=== PATIENT | female | born 1995 | race Caucasian/White ===

== ENCOUNTER → 2018-09-20 | Outpatient (REF) | payer OTHER ==
[2018-09-20 13:23] LABS: BASO % 0.7 % (0.0-1.0); EOS # 0.1 10^3/uL (0.0-0.50); EOS % 1.9 % (0.0-3.0); HEMATOCRIT 41.5 % (36.0-47.0); HEMOGLOBIN 14.4 g/dl (12.0-15.5); LYMPH # 1.2 10^3/uL (1.5-6.5); MEAN CORPUSCULAR HEMOGLOBIN 30.8 pg (27.0-33.0); MEAN CORPUSCULAR HGB CONC 34.7 g/dl (32.0-36.5); MEAN CORPUSCULAR VOLUME 88.7 fl (80.0-96.0); MONO # 0.3 10^3/uL (0.0-0.8); MONO % 6.5 % (0.0-5.0); NEUTROPHILS # 2.6 10^3/uL (1.8-7.7); NEUTROPHILS % 61.7 % (36.0-66.0); PLATELET COUNT, AUTOMATED 203 10^3/uL (150-450); RED BLOOD COUNT 4.68 10^6/uL (4.00-5.40); WHITE BLOOD COUNT 4.3 10^3/uL (4.0-10.0)
[2018-09-20 13:59] LABS: ALBUMIN 4.5 GM/DL (3.2-5.2); ALT/SGPT 20 U/L (12-78); BILIRUBIN,TOTAL 0.7 MG/DL (0.2-1.0); BLOOD UREA NITROGEN 9 MG/DL (7-18); CALCIUM LEVEL 8.4 MG/DL (8.5-10.1); CARBON DIOXIDE LEVEL 24 MEQ/L (21-32); CHLORIDE LEVEL 109 MEQ/L (98-107); CREATININE FOR GFR 0.67 MG/DL (0.55-1.30); GLOMERULAR FILTRATION RATE > 60.0 (>60); GLUCOSE, FASTING 86 MG/DL (70-100); POTASSIUM SERUM 4.2 MEQ/L (3.5-5.1); SODIUM LEVEL 141 MEQ/L (136-145); TOTAL PROTEIN 7.2 GM/DL (6.4-8.2); TROPONIN I < 0.02 NG/ML (< 0.10)
== END ==
LOC: M SFHCLERA 12:12
PROVIDERS: ATTEND Nurse Practitioner Family
DX: R07.9 Chest pain, unspecified (principal)

== ENCOUNTER → 2018-09-20 | Outpatient (CLI) | payer OTHER ==
--- NOTE | 2018-09-20 12:53 | REP ---
Chest two views HISTORY: Chest pain Comparison: None The lungs are clear. The heart is normal in size. The pulmonary vasculature is normal in appearance. The bony structure is intact. IMPRESSION: No acute disease. Electronically Signed by Cole Rossi MD 09/20/2018 12:45 P
== END ==
LOC: M LRY 12:30
PROVIDERS: ATTEND Nurse Practitioner Family
DX: R07.9 Chest pain, unspecified (principal)

== ENCOUNTER 2019-06-12 18:19 | Outpatient (CLI) | payer OTHER ==
[~2019-06-12] VITALS: Ht 165.1 cm; Wt 85.7 kg
[2019-06-12 18:35] VITALS: BP 134/75
[2019-06-12] MEDS ORDERED: ZOLO50TA PO (18:42)
[2019-06-12] MEDS ORDERED: PRENTAB9 PO (18:42)
[2019-06-12] MEDS ORDERED: ZYRTTAB8 PO (18:42)
[2019-06-12] MEDS ORDERED: ZOLO25TA PO (18:42)
--- NOTE | 2019-06-13 00:15 | IPNPDOC ---
Text Note Date of Service The patient was seen on 06/12/19. NOTE patient is a 24 yo @ 38+3wks gestation presents with regular painful contractions. Denies LOF/VB. +FM Vitals: normal nad abd: gravid, soft, nt, cephalic fht: reactive toco: ctx q 3mins ce (by nurse): 2-3cm a/p patient in early labor. Option of staying and recheck in 2 hrs vs. going home and come back when contractions are more intense. patient opted to go home. return precautions given. DO Megha VS,Fishbone, I+O VS, Fishbone, I+O Vital Signs Date Time Temp Pulse Resp B/P (MAP) Pulse Ox O2 Delivery O2 Flow Rate FiO2 06/12/19 18:35 98.8 95 17 134/75 (94) CYNTHIA REDMAN DO Jun 13, 2019 00:15
== END 2019-06-12 19:28 | disposition home or self-care (01) ==
LOC: M LDO 18:19
PROVIDERS: ATTEND Obstetrics & Gynecology
DX: O62.0 Primary inadequate contractions (principal); Z3A.38 38 weeks gestation of pregnancy
CPT/HCPCS: 59025; G0378; G0463

== ENCOUNTER 2019-06-12 22:27 | Inpatient (IN) | payer OTHER ==
[~2019-06-12] VITALS: Ht 165.1 cm; Wt 86.5 kg
[~2019-06-12 22:27] MED LIST: PRENTAB9 PO; ZOLO25TA PO; ZOLO50TA PO; ZYRTTAB8 PO
[2019-06-12] MEDS ORDERED: LACTATED RINGER'S 1000 ML IV STA (22:45)
[2019-06-12] MEDS ORDERED: LR 1,000 ML IV SCH (22:45)
[2019-06-12 22:53] VITALS: BP 136/68
[2019-06-12 23:15] LABS: HEMATOCRIT 34.2 % (36.0-47.0); HEMOGLOBIN 11.7 g/dl (12.0-15.5); MEAN CORPUSCULAR HGB CONC 34.2 g/dl (32.0-36.5); MEAN CORPUSCULAR VOLUME 90.7 fl (80.0-96.0); PLATELET COUNT, AUTOMATED 134 10^3/uL (150-450); RED BLOOD COUNT 3.77 10^6/uL (4.00-5.40)
--- NOTE | 2019-06-12 23:32 | HPEPDOC ---
Obstetrical History & Physical General Date of Admission Jun 12, 2019 at 22:49 History of Present Illness patient is a 24 yo @38+3wks by sure LMP c/w 8wks US emily 2Dec presents with regular painful contractions. Denies LOF/VB. Chief Complaint: Contractions, term Age: 24 : 2 Term: 1 Pre-term: 0 Abortions: 0 Livin Care Care: Good Care Dating Final EDC: Jun 23, 2019 Final EDC for Daily Update: Jun 23, 2019 Final EDC by: LMP, 1st trimester (US) Past Medical History Past Obstetrical History : Past Obstetrical History: Multigravida ( X 1, ) FITTER HAND History: No pertinent history Past Medical History Surgical History: Denies/None Social History Marital Status: Family situation: Spouse/partner home * Smoker: non-smoker Alcohol: Denies Drugs: denies Imunizations Tdap status: current Influenza Status: current Allergies Coded Allergies: SEASONAL ALLERGIES (Verified Allergy, Unknown, 06/12/19) Penicillins (Verified Adverse Reaction, Mild, NAUSEA, 06/12/19) Medications Scheduled Cetirizine HCl/Pseudoephedrine (Zyrtec-D Tablet) 1 Each Tab.er.12h, 1 TAB PO BID for allergy symptoms No.137/Iron/Folic Acd ( Vitamin Tablet) 1 Each Tablet, 1 TAB PO DAILY Sertraline Hcl (Zoloft) 25 Mg Tablet, 1 TAB PO DAILY Sertraline Hcl (Zoloft) 50 Mg Tablet, 1 TAB PO DAILY Physical Examination Physical Examination GENERAL: Alert and oriented times three. BREAST: . ABDOMEN: Gravid and non-tender to touch. FETUS: vertex by steve's HEART RATE: Regular rate and rhythm. LUNGS: Clear to auscultation (CTA). EXTREMITIES: No edema/erythema/tendernes efw: 3200gm by steve Laboratory Data 24H LABS Laboratory Tests 2 06/12/19 22:59: Serology Scanned Report Hepatitis B Testing Pertinent Laboratoy Data Blood Type: O+ RBC Antibody Screen: Negative HIV: Negative Hepatitis B: Negative Rapid Plasma Reagin: Nonreactive Rubella: Immune Chlamydia/Gonorrhea: Negative Group B Streptococcus: Negative Glucose Tolerance Test: 93 Anatomy Ultrasound Placenta Location: Posterior Normal Anatomy: Yes Placenta Previa: No Assessment Heart Rate (FHR): 120 Variability: Moderate Accelerations: Positive Decelerations: None Tocometer Frequency: regular, every 1-3 min., every 1-5 min. Assessment/Plan Assessment patient is a 29 yo G1 @ 38+3wks in labor. Discussd possible augmentation with pitocin or arom as needed. Patient counseled on l&d monitors and risks as follows. Discussed external monitor with toco and sono for fhr. Internal monitors with IUPC and FSE as indicated. Possible use of oxytocin and AROM to augment labor as indicated. Risk of emergent delivery, infection requiring antibiotics and prolonged hospital stay, bleeding requiring blood transfusion and associated risk like anaphylatic reaction and transmission of blood borne pathogens, use of forceps and vacuum to assist vaginal delivery in an emergency or for maternal exhaustion and associated risk of vaginal tear and permanent injuries, episiotomy and pain discussed with patient. 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 Diet: clear Group B Streptococcus (GBS) negative. Labs and intravenous (IV) per unit protocol. Anticipate normal spontaneous delivery (). C-S as appropriate. CYNTHIA REDMAN DO Jun 12, 2019 23:28
[2019-06-12] MEDS ORDERED: FENTANYL 2MCG/ML ROPIVACAINE 0.2% IN 0.9% NACL 100ML IVBAG As Ordered ONE (23:36)
[2019-06-13] VITALS (7 sets, daily range): BP systolic 107–141; BP diastolic 59–88
[2019-06-13] MEDS ORDERED: OXYTOCIN 30 UNITS IN 0.9% NaCl 500ML IV BAG (J2590) As Ordered ONE ×2 (00:20→00:34)
[2019-06-13] MEDS ORDERED: OXYTOCIN DRIP 30 UNITS in IV 1 EA IV SCH (01:10)
[2019-06-13] MEDS ORDERED: RHOGAM 300 MCG (1500 IU) INJ (J2790) IM SCH (01:15)
[2019-06-13] MEDS ORDERED: IBUPROFEN 800 MG TAB PO PRN (01:15)
[2019-06-13] MEDS ORDERED: ACETAMINOPHEN TAB 650MG DOSE (2X325MG) PO PRN (01:15)
[2019-06-13] MEDS ORDERED: DIBUCAINE 1% OINTMENT 30GM TOP PRN (01:15)
[2019-06-13] MEDS ORDERED: MEASLES,MUMPS,RUBELLA VACCINE INJ (MMR-II) (90707) SC SCH (01:15)
[2019-06-13] MEDS ORDERED: DOCUSATE SODIUM 100 MG CAP PO PRN (01:15)
--- NOTE | 2019-06-13 01:42 | DNPDOC ---
[facility] Delivery Note Delivery Note DATE OF DELIVERY: 13Jun2019 PREDELIVERY DIAGNOSIS: 38+3/7 weeks' gestation and labor. POST DELIVERY DIAGNOSIS: Delivered. PROCEDURE: Spontaneous vaginal delivery DIVISION ORDER ANALYST: Dr. Td Clevelnad DO ANESTHESIA: epidural. ESTIMATED BLOOD LOSS: 300mL. FINDINGS: 7 pound 7 ounce; female infant, Score 7/8 DELIVERY SUMMARY: Patient unmedicated on hands and knees with c/c/+2 with urge to push. Baby delivered OA, restituted LOT. anterior shoulder delivered followed by posterior shoulder, body followed with ease. Baby placed on bed. Cord clamped x 2 and cut. baby brought to warmer to suction. pitocin bolus started. placenta delivered spontaneously. Fundus massaged firm. inspection reveals right labia laceration, not bleeding, not requiring repair. EBL 300cc. DO ЮЛИЯ [place] LUAT N. DO Jun 13, 2019 01:19
[2019-06-13] MEDS ORDERED: diphenhydrAMINE INJ 50MG/ML VIAL (J1200) IV PRN (02:00)
[2019-06-13] MEDS ORDERED: REFRIGERATOR IV KEYS XX PRN (02:00)
[2019-06-13] MEDS ORDERED: ONDANSETRON 4MG/2ML VIAL (J2405) IV PRN (02:00)
[2019-06-13] MEDS ORDERED: EPIDURAL/PCA KEYS XX PRN (02:00)
[2019-06-13] MEDS ORDERED: NALOXONE INJ 0.4 MG/1 ML VIAL (J2310) IV PRN (02:00)
[2019-06-13] MEDS ORDERED: EPIDURAL COMMENT XX SCH (02:00)
[2019-06-13] MEDS ORDERED: FENTANYL/ROPIVACAINE/NACL BAG 100 ML EPIDURAL SCH (02:00)
[2019-06-13] MEDS: PRENATAL VITAMINS CHEWABLE TABLET PO SCH (08:52)
[2019-06-14 06:23] VITALS: BP 105/59
[2019-06-14] MEDS: PRENATAL VITAMINS CHEWABLE TABLET PO SCH (08:33)
[2019-06-14] MEDS ORDERED: ACET1TAB55 PO (10:07)
[2019-06-14] MEDS ORDERED: IBUP80TA PO (10:07)
--- NOTE | 2019-06-14 10:10 | DS.PDOC ---
Discharge Summary General Date of Admission Jun 12, 2019 at 22:49 Date of Discharge Jun 14, 2019 Discharge Summary HOSPITAL COURSE: Ms. 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 Her recovery course has been unremarkable. On her day of discharge she met all appropriate discharge criteria. She was ambulating, voiding, tolerating a regular diet, had minimal lochia, and minimal pain. DISCHARGE MEDICATIONS: Please see below. ALLERGIES: Please see below. PHYSICAL EXAMINATION ON DISCHARGE: VITAL SIGNS: Please see below. GENERAL: AAOX3, sitting up in bed, NAD ABDOMINAL EXAMINATION: Fundus firm at U-2. No fundal tenderness EXTREMITIES: No edema PSYCHIATRIC EXAMINATION: Affect appropriate LABORATORY DATA: Please see below. ACTIVITY: Pelvic rest for 6 weeks DIET: Regular DISCHARGE PLAN: Discharge home DISPOSITION: Discharge home on 14Jun2019. DISCHARGE INSTRUCTIONS: 1. Pelvic rest for 6 weeks ITEMS TO FOLLOWUP ON ON OUTPATIENT: 1. appointment in 6 weeks DISCHARGE CONDITION: Stable. TIME SPENT ON DISCHARGE: Greater than 20 minutes. Barry Rivera DO Vital Signs/I&Os Vital Signs Date Time Temp Pulse Resp B/P (MAP) Pulse Ox O2 Delivery O2 Flow Rate FiO2 06/14/19 06:23 97.8 83 16 105/59 (74) 06/13/19 18:00 97 Discharge Medications Scheduled Cetirizine HCl/Pseudoephedrine (Zyrtec-D Tablet) 1 Each Tab.er.12h, 1 TAB PO BID for allergy symptoms, (Reported) No.137/Iron/Folic Acd ( Vitamin Tablet) 1 Each Tablet, 1 TAB PO DAILY, (Reported) Sertraline Hcl (Zoloft) 25 Mg Tablet, 1 TAB PO DAILY, (Reported) Sertraline Hcl (Zoloft) 50 Mg Tablet, 1 TAB PO DAILY, (Reported) Scheduled PRN Acetaminophen (Acetaminophen) 325 Mg Tablet, 650 MG PO Q4HP PRN for fever Ibuprofen (Ibuprofen) 800 Mg Tablet, 800 MG PO Q8HP PRN for pain Allergies Coded Allergies: SEASONAL ALLERGIES (Verified Allergy, Unknown, 06/12/19) Penicillins (Verified Adverse Reaction, Mild, NAUSEA, 06/12/19) BARRY RIVERA DO Jun 14, 2019 10:10
== END 2019-06-14 11:24 | disposition home or self-care (01) | DRG 807 ==
LOC: M LDO 22:27 → M LDI 22:49 → M OBS 06-13 03:01
PROVIDERS: ADMIT Obstetrics & Gynecology; ATTEND Obstetrics & Gynecology
PROC: 10E0XZZ Delivery of Products of Conception, External Approach (ICD-10-PCS; principal; 2019-06-13)
DX: O70.0 First degree perineal laceration during delivery (principal); Z37.0 Single live birth; Z88.0 Allergy status to penicillin; Z3A.38 38 weeks gestation of pregnancy; Z79.899 Other long term (current) drug therapy

== ENCOUNTER 2022-08-05 09:08 | Inpatient (IN) | payer OTHER ==
[~2022-08-05] VITALS: Ht 167.6 cm; Wt 91.4 kg
[2022-08-05] VITALS (21 sets, daily range): BP systolic 124–188; BP diastolic 63–106
[~2022-08-05 09:08] MED LIST changes: +ACET1TAB55 PO; +IBUP80TA PO
[2022-08-05] MEDS ORDERED: WELLTAB38 PO (09:33)
[2022-08-05] MEDS ORDERED: IRON27TA2 PO (09:33)
[2022-08-05] MEDS ORDERED: ALLE24TA7 PO (09:33)
[2022-08-05] MEDS ORDERED: ECOT81TA5 PO (09:33)
[2022-08-05] MEDS ORDERED: EFFE75CA2 PO (09:33)
[2022-08-05] MEDS ORDERED: IRON65TA2 PO (09:34)
[2022-08-05] MEDS ORDERED: HOME MED LIST COMPLETE! XX SCH (09:35)
[2022-08-05] MEDS ORDERED: LACTATED RINGER'S 1000 ML IV STA (10:08)
[2022-08-05] MEDS: LR 1,000 ML IV SCH ×4 (10:10→18:10)
[2022-08-05] MEDS ORDERED: OXYTOCIN INJ 10UNITS/ML 1ML VIAL IM PRN (10:10)
[2022-08-05] MEDS ORDERED: OXYTOCIN DRIP 30 UNITS in IV 1 EA IV PRN (10:10)
[2022-08-05] MEDS ORDERED: TRANEXAMIC ACID INJection 1,000 MG in NS 100 ML IV PRN (10:10)
[2022-08-05] MEDS ORDERED: OXYTOCIN DRIP 30 UNITS in IV 1 EA IV SCH (10:10)
[2022-08-05] MEDS ORDERED: METHYLERGONOVINE MALEATE 0.2 MG/ML VIAL (J2210) IM PRN (10:10)
[2022-08-05 11:00] LABS: BASO % 0.5 % (0.0-1.0); EOS # 0.1 10^3/uL (0.0-0.5); EOS % 1.2 % (0.0-3.0); HEMATOCRIT 35.6 % (36.0-47.0); LYMPH # 1.7 10^3/uL (1.5-5.0); LYMPH % 19.6 % (24.0-44.0); MEAN CORPUSCULAR HEMOGLOBIN 31.2 pg (27.0-33.0); MEAN CORPUSCULAR HGB CONC 33.7 g/dl (32.0-36.5); MEAN CORPUSCULAR VOLUME 92.5 fl (80.0-96.0); MONO # 0.6 10^3/uL (0.0-0.8); MONO % 7.1 % (2.0-8.0); NEUTROPHILS % 70.8 % (36.0-66.0); PLATELET COUNT, AUTOMATED 160 10^3/uL (150-450); RED BLOOD COUNT 3.85 10^6/uL (4.00-5.40); WHITE BLOOD COUNT 8.5 10^3/uL (4.0-10.0)
[2022-08-05 11:25] LABS: ALBUMIN 2.5 G/DL (3.2-5.2); ALKALINE PHOSPHATASE 89 U/L (46-116); ALT/SGPT 21 U/L (7.0-40); AST/SGOT 22 U/L (<34); BILIRUBIN,TOTAL 0.3 MG/DL (0.3-1.2); BLOOD UREA NITROGEN 9 MG/DL (9-23); CALCIUM LEVEL 8.5 MG/DL (8.5-10.1); CARBON DIOXIDE LEVEL 22 MMOL/L (20-31); CHLORIDE LEVEL 105 MMOL/L (98-107); CREATININE FOR GFR 0.48 MG/DL (0.55-1.30); GLOMERULAR FILTRATION RATE > 60.0 (>60); GLUCOSE, FASTING 92 MG/DL (60-100); SODIUM LEVEL 137 MMOL/L (136-145); TOTAL PROTEIN 5.6 G/DL (5.7-8.2)
[2022-08-05 11:46] LABS: TOTAL PROTEIN,RANDOM URINE 26.8 MG/DL (0.0-14.0)
[2022-08-05 11:51] LABS: CREATININE,RANDOM URINE 126.9 MG/DL
[2022-08-05] MEDS ORDERED: MORPHINE 2 MG/ML 1ML VIAL IV ONE (15:05)
[2022-08-05] MEDS ORDERED: ZOSYN 3.375GM VIAL As Ordered ONE (15:45)
[2022-08-05] MEDS ORDERED: METOCLOPRAMIDE INJ 10MG/2ML VIAL As Ordered ONE (15:55)
[2022-08-05] MEDS ORDERED: SUGAMMADEX SODIUM 500 MG/5 ML VIAL (BRIDION) As Ordered ONE (15:55)
[2022-08-05] MEDS ORDERED: MIDAZOLAM INJ 2MG/2ML VIAL As Ordered ONE (15:55)
[2022-08-05] MEDS ORDERED: LIDOCAINE 2% 100MG/5ML SDV (FOR ANES.) As Ordered ONE (15:55)
[2022-08-05] MEDS ORDERED: ONDANSETRON 4MG 2ML VIAL As Ordered ONE (15:55)
[2022-08-05] MEDS ORDERED: SUCCINYLCHOLINE 100MG/5ML SYRINGE As Ordered ONE (15:55)
[2022-08-05] MEDS ORDERED: fentaNYL 100 MCG/2 ML INJECTION As Ordered ONE (15:55)
[2022-08-05] MEDS ORDERED: propofoL 200 MG/20 ML VIAL As Ordered ONE (15:55)
[2022-08-05] MEDS ORDERED: ROCURONIUM BROMIDE 50MG/5ML VIAL As Ordered ONE (15:55)
[2022-08-05] MEDS ORDERED: ACETAMINOPHEN 1000MG 100ML IV BAG As Ordered ONE (15:56)
[2022-08-05] MEDS ORDERED: OXYTOCIN INJ 10UNITS/ML 1ML VIAL As Ordered ONE ×2 (15:59→16:20)
[2022-08-05] MEDS ORDERED: METHYLERGONOVINE MALEATE 0.2 MG/ML VIAL (J2210) As Ordered ONE (15:59)
[2022-08-05] MEDS ORDERED: PIPERACILLIN/TAZOBACTAM SOD 3.375 GM in D5W MINI-BAG PLUS 50 ML IV ONE (16:40)
[2022-08-05] MEDS ORDERED: ANUSOL HC CREAM 30GM TOP PRN (17:35)
[2022-08-05] MEDS ORDERED: DIBUCAINE 1% OINTMENT 30GM TOP PRN (17:35)
[2022-08-05] MEDS ORDERED: ACETAMINOPHEN TAB 650MG DOSE (2X325MG) PO PRN (17:35)
[2022-08-05] MEDS ORDERED: METHYLERGONOVINE MALEATE 0.2 MG TAB PO PRN (17:35)
[2022-08-05] MEDS ORDERED: RHOGAM 300MCG (1500IU) INJ IM SCH (17:35)
[2022-08-05] MEDS ORDERED: IBUPROFEN 600MG TAB PO PRN (17:35)
[2022-08-05] MEDS ORDERED: ACETAMINOPHEN 500 MG TAB PO PRN (17:35)
[2022-08-05] MEDS ORDERED: DOCUSATE SODIUM 100MG CAPSULE PO PRN (17:35)
[2022-08-05] MEDS: IBUPROFEN 800 MG TAB PO PRN (20:34)
[2022-08-06 02:00] VITALS: BP 123/75
[2022-08-06 06:00] VITALS: BP 124/77
[2022-08-06 07:15] LABS: HEMATOCRIT 26.1 % (36.0-47.0); MEAN CORPUSCULAR HGB CONC 34.1 g/dl (32.0-36.5); MEAN CORPUSCULAR VOLUME 93.9 fl (80.0-96.0); PLATELET COUNT, AUTOMATED 145 10^3/uL (150-450); RED BLOOD COUNT 2.78 10^6/uL (4.00-5.40); WHITE BLOOD COUNT 12.5 10^3/uL (4.0-10.0)
[2022-08-06 07:16] LABS: HEMOGLOBIN 8.9 g/dl (12.0-15.5)
[2022-08-06] MEDS: VENLAFAXINE **XR** 75MG CAPSULE PO SCH (08:22)
[2022-08-06] MEDS: PRENATAL VITAMINS CHEWABLE TABLET PO SCH (08:22)
[2022-08-06] MEDS: buPROPion **XL** TABLET 150MG (WELLBUTRIN XL) PO SCH (08:23)
[2022-08-06] MEDS: FERROUS SULFATE 325MG TAB PO SCH (08:26)
[2022-08-06 10:00] VITALS: BP 130/72
[2022-08-06 14:00] VITALS: BP 139/81
[2022-08-06] MEDS: IBUPROFEN 800 MG TAB PO PRN (17:44)
[2022-08-06 18:00] VITALS: BP 126/79
[2022-08-06] MEDS ORDERED: FEXOFENADINE 60MG TAB PO PRN (22:10)
[2022-08-06 22:17] VITALS: BP 137/73
[2022-08-07 02:32] VITALS: BP 122/59
[2022-08-07 06:01] VITALS: BP 110/58
[2022-08-07] MEDS: VENLAFAXINE **XR** 75MG CAPSULE PO SCH (08:31)
[2022-08-07] MEDS: FERROUS SULFATE 325MG TAB PO SCH (08:31)
[2022-08-07] MEDS: PRENATAL VITAMINS CHEWABLE TABLET PO SCH (08:31)
[2022-08-07] MEDS: buPROPion **XL** TABLET 150MG (WELLBUTRIN XL) PO SCH (08:31)
[2022-08-07] MEDS ORDERED: ACET-683 PO (08:59)
[2022-08-07] MEDS ORDERED: IBUP80TA PO (08:59)
[2022-08-07] MEDS ORDERED: MEASLES,MUMPS,RUBELLA VACCINE INJ (MMR-II) SC.IMMUN ONE (09:00)
== END 2022-08-07 11:55 | disposition home or self-care (01) | DRG 806 ==
LOC: M LDO 09:08 → M LDI 10:05 → M OBS 17:03
PROVIDERS: ADMIT Obstetrics & Gynecology; ATTEND Obstetrics & Gynecology
PROC: 10E0XZZ Delivery of Products of Conception, External Approach (ICD-10-PCS; 2022-08-05)
PROC: 10D17Z9 Manual Extraction of Products of Conception, Retained, Via Natural or Artificial Opening (ICD-10-PCS; principal; 2022-08-05 15:20)
DX: O42.02 Full-term premature rupture of membranes, onset of labor within 24 hours of rupture (principal); Z37.0 Single live birth; D62 Acute posthemorrhagic anemia; O72.0 Third-stage hemorrhage; Z3A.37 37 weeks gestation of pregnancy; O99.824 Streptococcus B carrier state complicating childbirth; O99.03 Anemia complicating the puerperium